=== PATIENT | female | born 1945 | race Caucasian/White ===

== ENCOUNTER → 2017-02-02 | Outpatient (CLI) | payer MEDICARE ==
[~2017-02-02] MED LIST: AMLO2.5T PO; ASPI-515 PO; CEFD300C2 PO; CITA40TA5 PO; DOXY100C2 PO; DOXY100T PO; DULO60CA55 PO; GABA100C8 PO; GABA600T2 PO; HYDR-3144 PO; HYDR-3307 PO; HYDR1TAB12 PO; LISI40TA PO; METO25TA91 PO; OMEP20CA14 PO; OXYC10TA6 PO; PRED20TA PO; TIOT18CA INH; ZOLP-413 PO; [UNRECOGNIZED DRUG - REMARK] PO; omnicef PO
== END | disposition home or self-care (01) ==
LOC: CFH 13:33
PROVIDERS: ATTEND Internal Medicine Cardiovascular Disease
DX: I51.81 Takotsubo syndrome (principal); I10 Essential (primary) hypertension; I35.0 Nonrheumatic aortic (valve) stenosis; I34.0 Nonrheumatic mitral (valve) insufficiency; I71.4 Abdominal aortic aneurysm, without rupture; I51.7 Cardiomegaly; R06.02 Shortness of breath; Z85.72 Personal history of non-Hodgkin lymphomas; Z72.0 Tobacco use
CPT/HCPCS: 93306

== ENCOUNTER → 2017-02-17 | Outpatient (CLI) | payer MEDICARE | END | disposition home or self-care (01) | LOC: CFH 07:40 | PROVIDERS: ATTEND Family Medicine | DX: K82.4 Cholesterolosis of gallbladder (principal); N28.1 Cyst of kidney, acquired; I71.4 Abdominal aortic aneurysm, without rupture | CPT/HCPCS: 76700 ==

== ENCOUNTER → 2017-06-16 | Outpatient (CLI) | payer MEDICARE ==
[~2017-06-16] MED LIST changes: -CEFD300C2 PO; +CEFD300C37 PO; +GABA-826 PO; -GABA100C8 PO
== END | disposition home or self-care (01) ==
LOC: CFH 09:22
PROVIDERS: ATTEND Pain Medicine Pain Medicine
DX: C34.90 Malignant neoplasm of unspecified part of unspecified bronchus or lung (principal); J98.4 Other disorders of lung; J44.9 Chronic obstructive pulmonary disease, unspecified; M47.26 Other spondylosis with radiculopathy, lumbar region; M51.27 Other intervertebral disc displacement, lumbosacral region; M51.16 Intervertebral disc disorders with radiculopathy, lumbar region
CPT/HCPCS: 71020; 72148

== ENCOUNTER → 2018-01-19 | Outpatient (CLI) | payer MEDICARE ==
[~2018-01-19] MED LIST changes: -HYDR-3144 PO; +HYDR-3245 PO
== END | disposition home or self-care (01) ==
LOC: CFH 09:13
PROVIDERS: ATTEND Family Medicine
DX: J44.9 Chronic obstructive pulmonary disease, unspecified (principal); Z98.890 Other specified postprocedural states
CPT/HCPCS: 71046

== ENCOUNTER → 2018-01-27 | Outpatient (CLI) | payer MEDICARE ==
[~2018-01-27] MED LIST changes: +OMNIPAQUE 350 MG/ML, 100ML BOTTLE ONE
== END | disposition home or self-care (01) ==
LOC: CFH 13:55
PROVIDERS: ATTEND Specialist
DX: I77.810 Thoracic aortic ectasia (principal); J84.10 Pulmonary fibrosis, unspecified; C34.91 Malignant neoplasm of unspecified part of right bronchus or lung; C85.90 Non-Hodgkin lymphoma, unspecified, unspecified site
CPT/HCPCS: 71260; 74177; Q9967

== ENCOUNTER → 2018-05-10 | Outpatient (CLI) | payer MEDICARE ==
[~2018-05-10] MED LIST changes: -OMNIPAQUE 350 MG/ML, 100ML BOTTLE ONE
== END | disposition home or self-care (01) ==
LOC: CVU 08:30
PROVIDERS: ATTEND Family Medicine
DX: I70.203 Unspecified atherosclerosis of native arteries of extremities, bilateral legs (principal); I77.1 Stricture of artery; I10 Essential (primary) hypertension; J44.9 Chronic obstructive pulmonary disease, unspecified; J96.11 Chronic respiratory failure with hypoxia; Z72.0 Tobacco use; Z85.118 Personal history of other malignant neoplasm of bronchus and lung
CPT/HCPCS: 93922; 93925

== ENCOUNTER → 2018-07-30 | Outpatient (CLI) | payer MEDICARE ==
[~2018-07-30] MED LIST changes: -AMLO2.5T PO; +AMLO2.5T3 PO; +CLOP75TA52 PO; +OMNIPAQUE 350 MG/ML, 150 ML BOTTLE ONE; +OXYC-432 PO
== END | disposition home or self-care (01) ==
LOC: CFH 09:00
PROVIDERS: ATTEND Surgery
DX: I77.811 Abdominal aortic ectasia (principal); I73.9 Peripheral vascular disease, unspecified; I74.5 Embolism and thrombosis of iliac artery; M81.0 Age-related osteoporosis without current pathological fracture; F32.9 Major depressive disorder, single episode, unspecified; F17.200 Nicotine dependence, unspecified, uncomplicated
CPT/HCPCS: 75635; Q9967

== ENCOUNTER 2018-08-02 12:34 | Inpatient (IN) | payer MEDICARE ==
[~2018-08-02] VITALS: Ht 172.7 cm; Wt 56.4 kg
[~2018-08-02 12:34] MED LIST changes: -CLOP75TA52 PO; -OMNIPAQUE 350 MG/ML, 150 ML BOTTLE ONE; -OXYC-432 PO
[2018-08-02] MEDS ORDERED: SODIUM CHLORIDE 0.9% 1,000ML IVBOLUS ONE ×2 (13:30→15:30)
[2018-08-02] MEDS ORDERED: SODIUM CHLORIDE FLUSH 10ML SYR IVF ONE ×2 (13:30→15:30)
[2018-08-02 14:01] LABS: BASOPHILS # (AUTO) 0.02 x10^3/uL (0-0.1); BASOPHILS % (AUTO) 0 % (0-1); EOSINOPHILS # (AUTO) 0.09 x10^3/uL (0-0.4); EOSINOPHILS % (AUTO) 1 % (1-7); LYMPHOCYTES # (AUTO) 1.37 x10^3/uL (1-3.4); LYMPHOCYTES % (AUTO) 21 % (22-44); MD NO; MEAN CORPUSCULAR HEMOGLOBIN 30.7 pg (27.0-34.8); MEAN CORPUSCULAR HGB CONC 34.3 g/dL (32.4-35.8); MEAN CORPUSCULAR VOLUME 89.3 fL (80-100); MEAN PLATELET VOLUME 7.4 fL (7.4-10.4); MONOCYTES # (AUTO) 0.62 x10^3/uL (0.2-0.8); MONOCYTES % (AUTO) 9 % (2-9); NEUTROPHILS # (AUTO) 4.51 x10^3/uL (1.8-6.8); NEUTROPHILS % (AUTO) 68 % (42-75); PLATELET COUNT 313 x10^3/uL (130-400); RED BLOOD COUNT 4.54 x10^6/uL (3.82-5.3); RED CELL DISTRIBUTION WIDTH 13.6 % (9.6-15.2)
[2018-08-02 14:11] LABS: INTERNATIONAL NORMALIZED RATIO 1.03 (0.93-1.1); PROTHROMBIN TIME 10.7 Seconds (9.6-11.5)
[2018-08-02 14:12] LABS: ALANINE AMINOTRANSFERASE 17 U/L (12-78); ALBUMIN 3.6 g/dL (3.4-5.0); ANION GAP 9 mmol/L (5-15); CALCIUM 9.2 mg/dL (8.5-10.1); CHLORIDE 101 mmol/L (98-107); CREATININE 0.69 mg/dL (0.55-1.02)
[2018-08-02 14:14] LABS: ALKALINE PHOSPHATASE 51 U/L (45-117); BILIRUBIN,TOTAL 0.4 mg/dL (0.2-1.0); TOTAL PROTEIN 8.1 g/dL (6.4-8.2)
[2018-08-02] MEDS ORDERED: CLOP75TA52 PO (15:16)
[2018-08-02] MEDS ORDERED: MORPHINE SULFATE 4 MG/ML, 1ML ONE (16:52)
[2018-08-02] MEDS ORDERED: ONDANSETRON ODT 4 MG PO ONE (17:00)
[2018-08-02] MEDS ORDERED: MORPHINE SULFATE 4 MG/ML, 1ML IVPush PRN (17:00)
[2018-08-02] MEDS ORDERED: OMNIPAQUE 350 MG/ML, 100ML BOTTLE ONE (17:10)
[2018-08-02] MEDS ORDERED: OXYC-432 PO (19:33)
[2018-08-02] MEDS ORDERED: hydrALAzine 20 MG/ML, 1ML IVPush PRN (20:30)
[2018-08-02] MEDS ORDERED: SODIUM CHLORIDE FLUSH 10ML SYR IVF PRN (20:30)
[2018-08-02] MEDS: GABAPENTIN 300 MG CAPSULE PO SCH (21:48)
[2018-08-02] MEDS: AMLODIPINE 2.5 MG TABLET PO SCH (21:48)
[2018-08-02] MEDS: D5%-0.45% NACL 1,000 ML IV SCH (21:48)
[2018-08-02 22:00] VITALS: BP 158/79
[2018-08-02] MEDS: OXYcodone/APAP 10/325MG TABLET PO PRN (22:09)
[2018-08-02] MEDS: MOVIPREP POWDER 1 PREP KIT PO SCH (23:07)
[2018-08-03 01:20] VITALS: BP 137/87
[2018-08-03] MEDS ORDERED: HYDROmorphone 2 MG/ML, 1ML ONE (02:23)
[2018-08-03] MEDS ORDERED: HYDROmorphone 1 MG/ML, 1ML IV ONE (02:30)
[2018-08-03] MEDS: MOVIPREP POWDER 1 PREP KIT PO SCH ×2 (06:15→20:55)
[2018-08-03] MEDS: METOPROLOL SUCCINATE 25 MG TAB.ER.24H PO SCH (06:15)
[2018-08-03 06:57] VITALS: BP 132/86
[2018-08-03] MEDS: OXYcodone/APAP 10/325MG TABLET PO PRN ×3 (07:30→22:24)
[2018-08-03] MEDS: CITALOPRAM 20 MG TABLET PO SCH (09:00)
[2018-08-03] MEDS: TIOTROPIUM 18 MCG INH SCH (09:00)
[2018-08-03] MEDS: DULOXETINE 30 MG CAPSULE.DR PO SCH (09:00)
[2018-08-03] MEDS: GABAPENTIN 300 MG CAPSULE PO SCH ×3 (09:00→21:05)
[2018-08-03] MEDS: LISINOPRIL 20 MG TABLET PO SCH (09:00)
[2018-08-03] MEDS: D5%-0.45% NACL 1,000 ML IV SCH (09:25)
[2018-08-03 13:05] VITALS: BP 159/89
[2018-08-03] MEDS: morphine SULFATE 10 MG/ML, 1ML IVPush PRN (13:31)
[2018-08-03] MEDS ORDERED: PROPOFOL 10 MG/ML, 20ML ONE (13:40)
[2018-08-03] MEDS ORDERED: ONDANSETRON ODT 8 MG PO PRN (14:30)
[2018-08-03] MEDS ORDERED: PROMETHAZINE 12.5 MG SUPP PR PRN (14:30)
[2018-08-03] MEDS ORDERED: OXYcodone 5 MG/5 ML ORAL.SOL UDC PO PRN (14:30)
[2018-08-03] MEDS ORDERED: hydrALAzine 20 MG/ML, 1ML IV PRN (14:30)
[2018-08-03] MEDS ORDERED: LORazepam 2 MG/ML, 1ML IVPush PRN (14:30)
[2018-08-03] MEDS ORDERED: MEPERIDINE/PF 25MG/0.5ML IVPush PRN (14:30)
[2018-08-03] MEDS ORDERED: FENTANYL PF 100 MCG/2ML IV PRN (14:30)
[2018-08-03] MEDS ORDERED: HYDROmorphone 1 MG/ML, 1ML IV PRN (14:30)
[2018-08-03] MEDS ORDERED: LABETALOL 5MG/ML, 20ML IV PRN (14:30)
[2018-08-03] MEDS ORDERED: EPHEDRINE 50 MG/ML, 1ML IVPush PRN (14:30)
[2018-08-03] MEDS ORDERED: PROMETHAZINE 25 MG/ML, 1ML IV PRN (14:30)
[2018-08-03] MEDS ORDERED: ONDANSETRON 2MG/ML, 2ML IV PRN (14:30)
[2018-08-03] MEDS ORDERED: MIDAZOLAM 1 MG/ML, 2ML IV PRN (14:30)
[2018-08-03] MEDS ORDERED: ALBUTEROL SULFATE 2.5 MG/3 ML NPPB PRN (14:30)
[2018-08-03] MEDS ORDERED: MORPHINE SULFATE 4 MG/ML, 1ML IVPush PRN (14:30)
[2018-08-03 16:09] LABS: BASOPHILS # (AUTO) 0.03 x10^3/uL (0-0.1); BASOPHILS % (AUTO) 1 % (0-1); EOSINOPHILS # (AUTO) 0.06 x10^3/uL (0-0.4); EOSINOPHILS % (AUTO) 1 % (1-7); LYMPHOCYTES # (AUTO) 1.24 x10^3/uL (1-3.4); LYMPHOCYTES % (AUTO) 23 % (22-44); MEAN CORPUSCULAR HEMOGLOBIN 29.9 pg (27.0-34.8); MEAN CORPUSCULAR HGB CONC 33.2 g/dL (32.4-35.8); MEAN CORPUSCULAR VOLUME 90.2 fL (80-100); MEAN PLATELET VOLUME 7.5 fL (7.4-10.4); MONOCYTES # (AUTO) 0.47 x10^3/uL (0.2-0.8); MONOCYTES % (AUTO) 9 % (2-9); NEUTROPHILS # (AUTO) 3.71 x10^3/uL (1.8-6.8); NEUTROPHILS % (AUTO) 67 % (42-75); PLATELET COUNT 248 x10^3/uL (130-400); RED BLOOD COUNT 4.11 x10^6/uL (3.82-5.3); RED CELL DISTRIBUTION WIDTH 13.9 % (9.6-15.2)
[2018-08-03 16:10] LABS: MD NO
[2018-08-03 19:50] VITALS: BP 136/90
[2018-08-03] MEDS ORDERED: HYDROCORTISONE 25 MG SUPP PR SCH (21:00)
[2018-08-03] MEDS: AMLODIPINE 2.5 MG TABLET PO SCH (21:05)
[2018-08-04] MEDS: morphine SULFATE 10 MG/ML, 1ML IVPush PRN (01:37)
[2018-08-04 01:38] VITALS: BP 143/86
[2018-08-04] MEDS: D5%-0.45% NACL 1,000 ML IV SCH ×2 (01:38→11:50)
[2018-08-04 05:39] LABS: BASOPHILS # (AUTO) 0.02 x10^3/uL (0-0.1); BASOPHILS % (AUTO) 0 % (0-1); EOSINOPHILS % (AUTO) 2 % (1-7); LYMPHOCYTES # (AUTO) 1.35 x10^3/uL (1-3.4); LYMPHOCYTES % (AUTO) 27 % (22-44); MD NO; MEAN CORPUSCULAR HEMOGLOBIN 30.2 pg (27.0-34.8); MEAN CORPUSCULAR HGB CONC 33.8 g/dL (32.4-35.8); MEAN CORPUSCULAR VOLUME 89.3 fL (80-100); MEAN PLATELET VOLUME 7.4 fL (7.4-10.4); MONOCYTES # (AUTO) 0.57 x10^3/uL (0.2-0.8); MONOCYTES % (AUTO) 11 % (2-9); NEUTROPHILS # (AUTO) 2.99 x10^3/uL (1.8-6.8); NEUTROPHILS % (AUTO) 59 % (42-75); PLATELET COUNT 259 x10^3/uL (130-400); RED BLOOD COUNT 4.31 x10^6/uL (3.82-5.3); RED CELL DISTRIBUTION WIDTH 14.1 % (9.6-15.2)
[2018-08-04] MEDS: METOPROLOL SUCCINATE 25 MG TAB.ER.24H PO SCH (05:46)
[2018-08-04] MEDS: OXYcodone/APAP 10/325MG TABLET PO PRN ×2 (05:47→11:17)
[2018-08-04 07:27] VITALS: BP 138/86
[2018-08-04] MEDS: TIOTROPIUM 18 MCG INH SCH (07:55)
[2018-08-04] MEDS: MOVIPREP POWDER 1 PREP KIT PO SCH (07:57)
[2018-08-04] MEDS: GABAPENTIN 300 MG CAPSULE PO SCH (08:06)
[2018-08-04] MEDS: DULOXETINE 30 MG CAPSULE.DR PO SCH (08:06)
[2018-08-04] MEDS: CITALOPRAM 20 MG TABLET PO SCH (08:06)
[2018-08-04] MEDS: LISINOPRIL 20 MG TABLET PO SCH (08:06)
[2018-08-04] MEDS ORDERED: PSYLLIUM PACKET PO SCH (09:00)
[2018-08-04 12:00] VITALS: BP 172/95
[2018-08-04] MEDS ORDERED: PSYL3.4P8 PO (12:03)
[2018-08-04] MEDS ORDERED: HYDR25SU3 PR (12:03)
== END 2018-08-04 13:28 | disposition home or self-care (01) | DRG 393 ==
LOC: ED 17:39 → 4NOR 20:24 → DCLOUNGE 08-04 13:13
PROVIDERS: ADMIT Hospitalist; ATTEND Hospitalist
PROC: 0DJD8ZZ Inspection of Lower Intestinal Tract, Via Natural or Artificial Opening Endoscopic (ICD-10-PCS; principal; 2018-08-04)
DX: K64.8 Other hemorrhoids (principal); K57.31 Diverticulosis of large intestine without perforation or abscess with bleeding; F11.20 Opioid dependence, uncomplicated; J96.10 Chronic respiratory failure, unspecified whether with hypoxia or hypercapnia; I42.9 Cardiomyopathy, unspecified; F17.200 Nicotine dependence, unspecified, uncomplicated; G89.12 Acute post-thoracotomy pain; G89.29 Other chronic pain; M54.5 Low back pain; M79.605 Pain in left leg; M79.604 Pain in right leg; I11.9 Hypertensive heart disease without heart failure; I25.10 Atherosclerotic heart disease of native coronary artery without angina pectoris; I73.9 Peripheral vascular disease, unspecified; J44.9 Chronic obstructive pulmonary disease, unspecified; Z99.81 Dependence on supplemental oxygen; K59.00 Constipation, unspecified; Z80.3 Family history of malignant neoplasm of breast; Z85.118 Personal history of other malignant neoplasm of bronchus and lung; Z85.72 Personal history of non-Hodgkin lymphomas; Z86.010 Personal history of colon polyps; Z90.2 Acquired absence of lung [part of]; I71.4 Abdominal aortic aneurysm, without rupture; Z90.49 Acquired absence of other specified parts of digestive tract; Z79.82 Long term (current) use of aspirin; Z79.899 Other long term (current) drug therapy
CPT/HCPCS: 36415; 74177; 80053; 83605; 85014; 85018; 85025; 85610; 85730; 86850; 86900; 93005; 96361; 96374; G0378; J1170; J2704; Q9967; J2270; J7030

== ENCOUNTER → 2018-08-31 | Outpatient (CLI) | payer MEDICARE ==
[~2018-08-31] MED LIST changes: +CLOP75TA52 PO; +HYDR25SU3 PR; +OXYC-432 PO; +PSYL3.4P8 PO
== END | disposition home or self-care (01) ==
LOC: CFH 11:08
PROVIDERS: ATTEND Neurological Surgery
DX: M47.897 Other spondylosis, lumbosacral region (principal)
CPT/HCPCS: 72100

== ENCOUNTER → 2018-12-30 | Outpatient (CLI) | payer MEDICARE ==
[~2018-12-30] MED LIST changes: -AMLO2.5T3 PO; +AMLO2.5T5 PO; -GABA600T2 PO; +GABA600T7 PO
== END | disposition home or self-care (01) ==
LOC: CFH 10:33
PROVIDERS: ATTEND Family Medicine
DX: Z12.31 Encounter for screening mammogram for malignant neoplasm of breast (principal); N95.9 Unspecified menopausal and perimenopausal disorder; Z85.3 Personal history of malignant neoplasm of breast
CPT/HCPCS: 77080; 77067

== ENCOUNTER → 2019-01-19 | Outpatient (CLI) | payer MEDICARE ==
[~2019-01-19] MED LIST changes: -HYDR1TAB12 PO; +HYDR1TAB13 PO; +REGADENOSON 0.4 MG/5 ML SYRINGE ONE
== END | disposition home or self-care (01) ==
LOC: CFH 07:44
PROVIDERS: ATTEND Internal Medicine Cardiovascular Disease
DX: I08.3 Combined rheumatic disorders of mitral, aortic and tricuspid valves (principal); I70.208 Unspecified atherosclerosis of native arteries of extremities, other extremity; I51.81 Takotsubo syndrome; I10 Essential (primary) hypertension; I25.2 Old myocardial infarction; J44.9 Chronic obstructive pulmonary disease, unspecified; F17.200 Nicotine dependence, unspecified, uncomplicated
CPT/HCPCS: 78452; 93017; 93306; A9502; J2785

== ENCOUNTER 2019-06-14 08:21 | Outpatient (CLI) | payer MEDICARE ==
[~2019-06-14 08:21] MED LIST changes: -DULO60CA55 PO; +DULO60CA56 PO; -HYDR-3307 PO; +HYDR-36 PO; -REGADENOSON 0.4 MG/5 ML SYRINGE ONE
[2019-07-11] MEDS ORDERED: DULO30CA2 PO (14:05)
[2019-07-11] MEDS ORDERED: HYDR10TA4 PO (14:09)
[2019-07-11] MEDS ORDERED: ALEN70TA6 PO (14:09)
[2019-07-11] MEDS ORDERED: SIMV10TA3 PO (14:09)
[2019-07-11] MEDS ORDERED: Oxygen INH (14:09)
[2019-07-11] MEDS ORDERED: BUSP10TA PO (14:09)
[2019-07-11] MEDS ORDERED: FLUT1BLS3 IH (14:09)
[2019-07-11] MEDS ORDERED: FORM20VI INH (14:09)
[2019-07-11] MEDS ORDERED: METO25TA35 PO (14:09)
[2019-07-11] MEDS ORDERED: MONT10TA6 PO (14:09)
[2019-08-03] MEDS ORDERED: OXYC10TA72 PO (14:27)
[2019-08-03] MEDS ORDERED: SENN1TAB67 PO (14:27)
[2019-08-03] MEDS ORDERED: MORP30TA PO (14:27)
[2019-08-03] MEDS ORDERED: OMEP-110 PO (14:27)
[2019-08-03] MEDS ORDERED: DOXY100T PO (14:27)
== END 2019-06-14 23:59 | disposition home or self-care (01) ==
LOC: CFH 08:21
PROVIDERS: ATTEND Nurse Practitioner Critical Care Medicine
DX: M51.17 Intervertebral disc disorders with radiculopathy, lumbosacral region (principal); M43.17 Spondylolisthesis, lumbosacral region; M48.07 Spinal stenosis, lumbosacral region; M48.05 Spinal stenosis, thoracolumbar region
CPT/HCPCS: 72110; 72148

== ENCOUNTER → 2020-08-22 | Outpatient (CLI) | payer MEDICARE ==
[~2020-08-22] MED LIST changes: +ALEN70TA6 PO; +BUSP10TA PO; +DULO30CA2 PO; +FLUT1BLS3 IH; +FORM20VI INH; +HYDR-2995 PO; +HYDR-3246 PO; -HYDR-36 PO; +METO25TA35 PO; +MONT10TA6 PO; +MORP30TA PO; +OMEP-110 PO; -OMEP20CA14 PO; +OMEP20CA20 PO; -OXYC-432 PO; +OXYC10TA72 PO; +OXYC1TAB18 PO; +Oxygen INH; +SENN1TAB67 PO; +SIMV10TA18 PO
== END | disposition home or self-care (01) ==
LOC: CFH 11:25
PROVIDERS: ATTEND Nurse Practitioner Family
DX: Z12.31 Encounter for screening mammogram for malignant neoplasm of breast (principal)
CPT/HCPCS: 77063; 77067

== ENCOUNTER 2020-10-16 07:32 | Day surgery (SDC) | payer MEDICARE ==
[~2020-10-16] VITALS: Ht 170.2 cm; Wt 53.9 kg
[~2020-10-16 07:32] MED LIST changes: -ALEN70TA6 PO; +ALEN70TA66 PO
[2020-10-16 08:07] VITALS: BP 104/70
[2020-10-16] MEDS ORDERED: SODIUM CHLORIDE 0.9% 1,000 ML IV SCH (08:30)
[2020-10-16] MEDS ORDERED: PLEASE ENTER HEIGHT AND WEIGHT MC SCH (08:30)
[2020-10-16] MEDS ORDERED: LIDOCAINE 1%, 10ML ONE (08:47)
[2020-10-16] MEDS ORDERED: MIDAZOLAM 1 MG/ML, 5ML ONE ×2 (08:47)
[2020-10-16] MEDS ORDERED: FLUMAZENIL 0.1 MG/1 ML, 5ML ONE (08:47)
[2020-10-16] MEDS ORDERED: FENTANYL PF 100 MCG/2ML ONE (08:47)
[2020-10-16] MEDS ORDERED: NALOXONE 1 MG/ML, 2ML ONE (08:47)
== END 2020-10-16 11:59 | disposition home or self-care (01) ==
LOC: OUT 07:32
PROVIDERS: ATTEND Internal Medicine Hematology & Oncology
DX: C34.91 Malignant neoplasm of unspecified part of right bronchus or lung (principal); C83.30 Diffuse large B-cell lymphoma, unspecified site; I10 Essential (primary) hypertension; I25.2 Old myocardial infarction; E83.52 Hypercalcemia; J44.9 Chronic obstructive pulmonary disease, unspecified; B18.2 Chronic viral hepatitis C; F17.210 Nicotine dependence, cigarettes, uncomplicated; Z79.891 Long term (current) use of opiate analgesic; Z79.899 Other long term (current) drug therapy; Z90.2 Acquired absence of lung [part of]; Z90.49 Acquired absence of other specified parts of digestive tract; Z90.89 Acquired absence of other organs; Z99.81 Dependence on supplemental oxygen
CPT/HCPCS: 32405; 71045; 77012; 88305; 99156; 99157; C2613; J2250; J3010; J7030; J2310

== ENCOUNTER 2020-11-12 12:34 | Outpatient (CLI) | payer MEDICARE ==
[~2020-11-12 12:34] MED LIST changes: -ALEN70TA66 PO; +ALEN70TA77 PO
[2020-11-12] MEDS ORDERED: LIDOCAINE 1%, 10ML ONE (13:17)
== END 2020-11-12 23:59 | disposition home or self-care (01) ==
LOC: RAD 12:34
PROVIDERS: ATTEND Internal Medicine Hematology & Oncology
DX: R59.1 Generalized enlarged lymph nodes (principal); D11.9 Benign neoplasm of major salivary gland, unspecified; C34.91 Malignant neoplasm of unspecified part of right bronchus or lung; C83.30 Diffuse large B-cell lymphoma, unspecified site; F17.210 Nicotine dependence, cigarettes, uncomplicated; Z79.899 Other long term (current) drug therapy; Z72.89 Other problems related to lifestyle; Z80.3 Family history of malignant neoplasm of breast; Z85.3 Personal history of malignant neoplasm of breast; Z82.49 Family history of ischemic heart disease and other diseases of the circulatory system
CPT/HCPCS: 10005; 38505; 76942; 88305

== ENCOUNTER 2020-12-03 06:57 | Day surgery (SDC) | payer MEDICARE ==
[~2020-12-03] VITALS: Ht 170.2 cm; Wt 54.7 kg
[~2020-12-03 06:57] MED LIST changes: -HYDR-3246 PO; +HYDR-3248 PO
[2020-12-03 07:53] VITALS: BP 129/85
[2020-12-03] MEDS ORDERED: SODIUM CHLORIDE 0.9% 1,000 ML IV SCH (08:00)
[2020-12-03] MEDS ORDERED: CEFAZOLIN PMX 1GM/50ML 50 ML IV ONE (08:00)
[2020-12-03] MEDS ORDERED: LIDOCAINE 1%, 10ML ONE (08:51)
[2020-12-03] MEDS ORDERED: LIDOCAINE 1%, 20ML ONE (08:51)
[2020-12-03] MEDS ORDERED: FENTANYL PF 100 MCG/2ML ONE (09:01)
[2020-12-03] MEDS ORDERED: MIDAZOLAM 1 MG/ML, 5ML ONE (09:01)
[2020-12-03] MEDS ORDERED: FLUMAZENIL 0.1 MG/1 ML, 5ML ONE (09:01)
[2020-12-03] MEDS ORDERED: NALOXONE 1 MG/ML, 2ML ONE (09:01)
== END 2020-12-03 12:10 | disposition home or self-care (01) ==
LOC: OUT 06:57
PROVIDERS: ATTEND Internal Medicine Hematology & Oncology
DX: C34.91 Malignant neoplasm of unspecified part of right bronchus or lung (principal); C83.30 Diffuse large B-cell lymphoma, unspecified site; I10 Essential (primary) hypertension; J44.9 Chronic obstructive pulmonary disease, unspecified; F17.210 Nicotine dependence, cigarettes, uncomplicated; Z79.891 Long term (current) use of opiate analgesic; Z79.899 Other long term (current) drug therapy; Z90.49 Acquired absence of other specified parts of digestive tract; Z98.890 Other specified postprocedural states; Z99.81 Dependence on supplemental oxygen
CPT/HCPCS: 36561; 76937; 77001; 99156; 99157; C1788; J1642; J2250; J3010; J2310

== ENCOUNTER 2021-06-11 16:24 | Emergency (ER) | payer MEDICARE ==
[~2021-06-11] VITALS: Ht 172.7 cm; Wt 45.0 kg
[~2021-06-11 16:24] MED LIST changes: -ASPI-515 PO; +ASPI-963 PO; +ASPI-963 PO/NG; -HYDR-3245 PO; +HYDR1TAB53 PO; -LISI40TA PO; +LISI40TA9 PO
[2021-06-11] MEDS ORDERED: ONDANSETRON 2MG/ML, 2ML IVPush ONE (16:30)
[2021-06-11] MEDS ORDERED: MORPHINE SULFATE 4 MG/ML, 1ML ONE ×2 (16:32→18:46)
[2021-06-11] MEDS ORDERED: ONDANSETRON 2MG/ML, 2ML ONE (16:32)
[2021-06-11] MEDS: MORPHINE SULFATE 4 MG/ML, 1ML IVPush PRN ×2 (16:33→18:49)
--- NOTE | 2021-06-11 16:35 | NUR ---
Break RN: medicated patient per mar.
--- NOTE | 2021-06-11 16:53 | NUR ---
Break RN: patient to xray.
--- NOTE | 2021-06-11 16:56 | NUR ---
Citlali CALDERONmanager of drilling [phone]. 24-hour service number [phone]. Please call to give an update on patient disposition.
[2021-06-11 17:17] LABS: BASOPHILS % (AUTO) 1 % (0-1); EOSINOPHILS % (AUTO) 0 % (1-7); LYMPHOCYTES % (AUTO) 8 % (22-44); MEAN CORPUSCULAR HEMOGLOBIN 28.5 pg (27.0-34.8); MEAN CORPUSCULAR HGB CONC 33.3 g/dL (32.4-35.8); MEAN PLATELET VOLUME 7.5 fL (7.4-10.4); MONOCYTES % (AUTO) 5 % (2-9); NEUTROPHILS % (AUTO) 87 % (42-75); PLATELET COUNT 331 x10^3/uL (130-400); RED BLOOD COUNT 4.92 x10^6/uL (3.82-5.3); RED CELL DISTRIBUTION WIDTH 15.9 % (9.6-15.2)
[2021-06-11 17:26] LABS: ALBUMIN 3.3 g/dL (3.4-5.0); ANION GAP 4 mmol/L (5-15); CALCIUM 10.1 mg/dL (8.5-10.1); CHLORIDE 102 mmol/L (98-107)
[2021-06-11 18:49] VITALS: BP 161/125
--- NOTE | 2021-06-11 18:49 | NUR ---
BEDSIDE DISCUSSING POC WITH CHAPINCITO COX
[2021-06-11] MEDS ORDERED: HYDROmorphone 1 MG/ML, 1ML INJ IV ONE (20:30)
[2021-06-11] MEDS ORDERED: HYDROmorphone 1 MG/ML, 1ML INJ ONE (20:30)
== END 2021-06-11 20:45 | disposition home or self-care (01) ==
LOC: ED 17:00
DX: S72.141A Displaced intertrochanteric fracture of right femur, initial encounter for closed fracture (principal); R00.0 Tachycardia, unspecified; I10 Essential (primary) hypertension; J44.9 Chronic obstructive pulmonary disease, unspecified; G89.29 Other chronic pain; Z85.118 Personal history of other malignant neoplasm of bronchus and lung; Z86.73 Personal history of transient ischemic attack (TIA), and cerebral infarction without residual deficits; W01.0XXA Fall on same level from slipping, tripping and stumbling without subsequent striking against object, initial encounter; Y93.89 Activity, other specified; Y92.009 Unspecified place in unspecified non-institutional (private) residence as the place of occurrence of the external cause; Y99.8 Other external cause status
CPT/HCPCS: 36415; 51702; 71045; 73502; 80048; 82040; 85025; 93005; 96374; 96375; 96376; 99285; J1170; J2270; J2405